=== PATIENT | male | born 1935 | race Hispanic/Latino ===

== ENCOUNTER 2022-12-14 08:49 | Inpatient (IN) | payer OTHER, MEDICAID ==
[2022-12-14] MEDS ORDERED: Fentanyl 100 MCG/2 ML VIAL ONE (08:59)
[2022-12-14] MEDS ORDERED: Albuterol 2.5 MG/0.5 ML NEB ONE (09:03)
[2022-12-14 09:14] LABS: #Basophils 0.1 thou/uL (0.0-0.2); #Eosinphils 0.3 thou/uL (0.0-0.7); #Lymphocytes 4.2 thou/uL (1.20-3.40); #Neutrophils 4.6 thou/uL (1.40-6.50); %Eosinophils 3.1 % (0.0-10.0); %Lymphocytes 40.7 % (21.0-51.0); %Monocytes 9.8 % (0.0-10.0); %Neutrophils 45.4 % (42.0-75.0); Hemoglobin 13.5 g/dL (14.0-18.0); Mean Corpuscular HGB CONC 32.3 g/dL (32.0-36.0); Mean Corpuscular Hemoglobin 32.1 pg (27.0-31.0); Mean Corpuscular Volume 99.3 fl (78.0-98.0); Mean Platelet Volume 9.1 fL (7.4-10.4); Platelet Count 186 10x3/uL (130-400); RBC Distribution Width 12.6 % (11.5-14.5); Red Blood Cell (RBC) Count 4.21 mill/uL (4.70-6.10); White Blood Cell (WBC) Count 10.2 10x3/uL (4.8-10.8)
[2022-12-14] MEDS ORDERED: Azithromycin 500 MG VIAL ONE (09:16)
[2022-12-14] MEDS ORDERED: cefTRIAXone\\ROCEPHIN 2 GM VIAL ONE (09:16)
[2022-12-14 09:26] LABS: Actual Bicarbonate (HCO3a) 21.4 mEq/L (22-28); Analyzer IN Cardio ER; Base Excess (BEa) -7.3 mEq/L (-2.0 to +3.0); CO2 Tension 56.6 mmHg (35.0-45.0); Calcium, Ionized (arterial) 1.22 mmol/L (1.12-1.30); Carboxyhemoglobin (COHb) 0.6 gm% (0.0-3.0); O2 Tension (PaO2), arterial 235.6 mmHg (> 60.0); Potassium - ABG Lab 3.84 mmol/L (3.70-5.30)
[2022-12-14 09:27] LABS: Puncture Site LRA
[2022-12-14 09:31] LABS: Bacteria/HPF Rare-Few HPF (None Seen); Bilirubin Negative (Negative); Blood, Urine 1+ (Negative); Clarity Clear (Clear); Glucose, Urine (Dipstick) 200 mg/dL (Negative); Ketone, Urine Negative (Negative); Leukocyte Negative Leu/uL (Negative); Nitrite Negative (Negative); Protein, Urine (Dipstick) 70 mg/dL (Neg-Trace); Specific Gravity, Urine 1.013 (1.002-1.036); Squamous Epithelial 0-3 HPF (0-3); Urobilinogen Normal mg/dL (Less than 2); WBC/HPF 0-3 HPF (0-3); pH, Urine 6.5 (5.0-9.0)
[2022-12-14 09:37] LABS: ALT (SGPT) 9 U/L (8-55); AST (SGOT) 16 U/L (5-34); Albumin 3.9 g/dL (3.4-4.8); Alkaline Phosphatase 77 U/L (40-110); Anion Gap 18 mmol/L (10-20); BUN (Urea Nitrogen) 15 mg/dL (8.4-25.7); Calc. Creatinine Clearance 0 mL/min (70-130); Calcium 8.5 mg/dL (7.8-10.44); Carbon Dioxide 18 mmol/L (23-31); Chloride 107 mmol/L (98-107); Estimated GFR 53; Globulin 2.3 g/dL (2.4-3.5); Glucose 281 mg/dL (83-110); Potassium 4.2 mmol/L (3.5-5.1); Protein, Total 6.2 g/dL (5.8-8.1); Sodium 139 mmol/L (136-145)
[2022-12-14] MEDS ORDERED: Fentanyl CADD 100 ML IV SCH (09:45)
[2022-12-14 09:53] LABS: SARS-CoV-2 NAA Rapid Test Not Detected (NotDetected)
[2022-12-14 10:29] LABS: Phosphorus 5.4 mg/dL (2.3-4.7)
[2022-12-14] MEDS ORDERED: Dextrose 5% in Water 1,000 ML IV PRN (10:53)
[2022-12-14] MEDS ORDERED: HumaLOG 300 UNITS/3 ML VIAL SC PRN (10:53)
[2022-12-14] MEDS ORDERED: Dextrose 50% Abboject 50 ML SYRINGE SLOW IVP PRN (10:53)
[2022-12-14] MEDS ORDERED: Ipratropium/Albuterol 3 ML NEB NEB PRN (10:54)
[2022-12-14] MEDS ORDERED: Labetalol HCl 100 MG/20 ML VIAL SLOW IVP PRN (10:59)
[2022-12-14] MEDS ORDERED: hydrALAZINE 20 MG/ML VIAL SLOW IVP PRN (10:59)
[2022-12-14] MEDS ORDERED: Propofol 1,000 MG/100 ML VIAL IV ONE (11:11)
[2022-12-14] MEDS: Propofol 1,000 MG/100 ML VIAL IV PRN (11:15)
[2022-12-14 12:03] LABS: Troponin I 0.033 ng/mL (< 0.028)
[2022-12-14] MEDS: Lactated Ringer's 1,000 ML IV SCH ×2 (12:07→16:42)
[2022-12-14] MEDS ORDERED: Ventilator Sedation Protocol 1 EACH FS SCH (12:33)
[2022-12-14] MEDS ORDERED: DISCONTINUE PREVIOUS NARCOTIC PAIN MEDICATIONS AND BENZODIAZEPINES FS SCH (12:45)
[2022-12-14] MEDS ORDERED: Morphine 4 MG/ML VIAL SLOW IVP PRN (12:45)
[2022-12-14] MEDS ORDERED: Fentanyl BOLUS 250 ML IVPB PRN (12:45)
[2022-12-14] MEDS ORDERED: Propofol BOLUS 1,000 MG/100 ML VIAL IV PRN (12:45)
[2022-12-14] MEDS: methylPREDNISolone Sod Succ 40 MG VIAL IVP SCH ×2 (13:09→17:41)
[2022-12-14] MEDS ORDERED: methylPREDNISolone Sod Succ 40 MG VIAL IVP SCH (14:00)
[2022-12-14] MEDS ORDERED: Lactated Ringer's 500 ML IV SCH (14:00)
[2022-12-14] MEDS ORDERED: Iopamidol-370 76% 500 ML 1 ML ONE (15:04)
[2022-12-14] MEDS ORDERED: Carvedilol 6.25 MG TAB PO SCH (17:00)
[2022-12-14 17:22] LABS: Hemoglobin A1c 5.4 % (4.0-6.0)
[2022-12-14 17:33] LABS: Lactic Acid 2.7 mmol/L (0.5-2.2)
[2022-12-14 17:37] LABS: Cardiac Risk 3.6 (Less than 4.5)
[2022-12-14] MEDS ORDERED: FLU VACC QS2022-23(65YR UP)/PF 240 MCG/0.7 ML SYRINGE IM ONE (18:00)
[2022-12-14] MEDS: Tamsulosin HCl 0.4 MG CAP PO SCH (21:49)
[2022-12-14] MEDS: Heparin 5,000 UNITS/ML VIAL SC SCH (21:49)
[2022-12-14 22:54] LABS: Lactic Acid 3.1 mmol/L (0.5-2.2)
[2022-12-15] MEDS: methylPREDNISolone Sod Succ 40 MG VIAL IVP SCH ×5 (00:17→23:30)
[2022-12-15] MEDS: Lactated Ringer's 1,000 ML IV SCH ×3 (03:11→21:52)
[2022-12-15 03:59] LABS: #Lymphocytes 0.6 thou/uL (1.20-3.40); #Monocytes 0.1 thou/uL (0.11-0.59); #Neutrophils 11.2 thou/uL (1.40-6.50); %Eosinophils 0.1 % (0.0-10.0); %Lymphocytes 5.1 % (21.0-51.0); %Neutrophils 93.8 % (42.0-75.0); Hemoglobin 12.4 g/dL (14.0-18.0); Mean Corpuscular HGB CONC 33.6 g/dL (32.0-36.0); Mean Corpuscular Hemoglobin 32.2 pg (27.0-31.0); Mean Corpuscular Volume 95.9 fl (78.0-98.0); Mean Platelet Volume 9.4 fL (7.4-10.4); Platelet Count 162 10x3/uL (130-400); RBC Distribution Width 12.6 % (11.5-14.5); Red Blood Cell (RBC) Count 3.86 mill/uL (4.70-6.10)
[2022-12-15 04:20] LABS: ALT (SGPT) 8 U/L (8-55); AST (SGOT) 15 U/L (5-34); Albumin 3.3 g/dL (3.4-4.8); Alkaline Phosphatase 68 U/L (40-110); Anion Gap 12 mmol/L (10-20); BUN (Urea Nitrogen) 20 mg/dL (8.4-25.7); Bilirubin, Total 0.8 mg/dL (0.2-1.2); Calc. Creatinine Clearance 50 mL/min (70-130); Calcium 8.4 mg/dL (7.8-10.44); Carbon Dioxide 21 mmol/L (23-31); Chloride 108 mmol/L (98-107); Estimated GFR 66; Globulin 2.3 g/dL (2.4-3.5); Glucose 154 mg/dL (83-110); Potassium 4.1 mmol/L (3.5-5.1); Protein, Total 5.6 g/dL (5.8-8.1); Sodium 137 mmol/L (136-145)
[2022-12-15] MEDS: Propofol 1,000 MG/100 ML VIAL IV PRN ×2 (04:46→17:31)
[2022-12-15 07:56] LABS: Actual Bicarbonate (HCO3a) 22.6 mEq/L (22-28); Base Excess (BEa) -0.3 mEq/L (-2.0 to +3.0); CO2 Tension 31.9 mmHg (35.0-45.0); Calcium, Ionized (arterial) 1.17 mmol/L (1.12-1.30); Carboxyhemoglobin (COHb) 0.2 gm% (0.0-3.0); Hemoglobin (Hb) 12.7 g/dL (14.0-18.0); O2 Tension (PaO2), arterial 100.1 mmHg (> 60.0); Potassium - ABG Lab 4.12 mmol/L (3.70-5.30); pH, Arterial 7.47 (7.35-7.45)
[2022-12-15 08:00] LABS: ALV-art Gradient 109.575 mmHg (0-20); Puncture Site RRA
[2022-12-15] MEDS: Heparin 5,000 UNITS/ML VIAL SC SCH ×2 (08:42→21:44)
[2022-12-15] MEDS: Lorazepam 2 MG/ML VIAL SLOW IVP PRN ×2 (08:42→21:45)
[2022-12-15] MEDS: Azithromycin 500 MG in Sodium Chloride 0.9% 250 ML 250 ML IVPB SCH (08:43)
[2022-12-15] MEDS: Pantoprazole 40 MG VIAL IVP SCH (08:43)
[2022-12-15] MEDS ORDERED: Lactated Ringer's 1,000 ML IV SCH (08:45)
[2022-12-15] MEDS ORDERED: Lisinopril 10 MG TAB PO SCH (09:00)
[2022-12-15] MEDS ORDERED: Ipratropium/Albuterol 3 ML NEB NEB SCH (10:30)
[2022-12-15] MEDS: Ipratropium/Albuterol 3 ML NEB NEB SCH ×5 (11:08→21:42)
[2022-12-15] MEDS: cefTRIAXone\\ROCEPHIN 1 GM in Sodium Chloride 0.9% 100 ML IVPB SCH (11:10)
[2022-12-15] MEDS: Tamsulosin HCl 0.4 MG CAP PO SCH (21:45)
[2022-12-16] MEDS: Ipratropium/Albuterol 3 ML NEB NEB SCH ×8 (00:28→22:06)
[2022-12-16] MEDS: Propofol 1,000 MG/100 ML VIAL IV PRN ×3 (02:29→23:45)
[2022-12-16 03:59] LABS: #Lymphocytes 0.5 thou/uL (1.20-3.40); #Monocytes 0.4 thou/uL (0.11-0.59); %Eosinophils 0.1 % (0.0-10.0); %Lymphocytes 3.1 % (21.0-51.0); %Monocytes 2.6 % (0.0-10.0); %Neutrophils 94.2 % (42.0-75.0); Hemoglobin 11.6 g/dL (14.0-18.0); Mean Corpuscular Hemoglobin 32.2 pg (27.0-31.0); Mean Corpuscular Volume 97.5 fl (78.0-98.0); Mean Platelet Volume 9.5 fL (7.4-10.4); Platelet Count 165 10x3/uL (130-400); RBC Distribution Width 12.8 % (11.5-14.5); Red Blood Cell (RBC) Count 3.62 mill/uL (4.70-6.10); White Blood Cell (WBC) Count 14.8 10x3/uL (4.8-10.8)
[2022-12-16 04:36] LABS: ALT (SGPT) 9 U/L (8-55); AST (SGOT) 11 U/L (5-34); Alkaline Phosphatase 58 U/L (40-110); Anion Gap 14 mmol/L (10-20); BUN (Urea Nitrogen) 28 mg/dL (8.4-25.7); Bilirubin, Total 0.3 mg/dL (0.2-1.2); Calc. Creatinine Clearance 61 mL/min (70-130); Calcium 8.1 mg/dL (7.8-10.44); Carbon Dioxide 20 mmol/L (23-31); Chloride 107 mmol/L (98-107); Estimated GFR 84; Globulin 2.1 g/dL (2.4-3.5); Glucose 174 mg/dL (83-110); Potassium 3.8 mmol/L (3.5-5.1); Protein, Total 5.1 g/dL (5.8-8.1); Sodium 137 mmol/L (136-145)
[2022-12-16] MEDS: methylPREDNISolone Sod Succ 40 MG VIAL IVP SCH ×4 (05:35→23:45)
[2022-12-16] MEDS: HumaLOG 300 UNITS/3 ML VIAL SC PRN ×3 (05:35→17:59)
[2022-12-16] MEDS: Azithromycin 500 MG in Sodium Chloride 0.9% 250 ML 250 ML IVPB SCH (08:21)
[2022-12-16] MEDS: Pantoprazole 40 MG VIAL IVP SCH (08:24)
[2022-12-16] MEDS: Heparin 5,000 UNITS/ML VIAL SC SCH ×2 (08:24→20:15)
[2022-12-16] MEDS: cefTRIAXone\\ROCEPHIN 1 GM in Sodium Chloride 0.9% 100 ML IVPB SCH (10:52)
[2022-12-16] MEDS: Lactated Ringer's 1,000 ML IV SCH ×2 (13:01→22:13)
[2022-12-16] MEDS: Tamsulosin HCl 0.4 MG CAP PO SCH (20:16)
[2022-12-17] MEDS: Ipratropium/Albuterol 3 ML NEB NEB SCH ×8 (00:35→22:41)
[2022-12-17] MEDS: methylPREDNISolone Sod Succ 40 MG VIAL IVP SCH ×2 (06:19→12:52)
[2022-12-17] MEDS: HumaLOG 300 UNITS/3 ML VIAL SC PRN (06:20)
[2022-12-17 06:38] LABS: #Lymphocytes 0.4 thou/uL (1.20-3.40); #Monocytes 0.5 thou/uL (0.11-0.59); #Neutrophils 15.3 thou/uL (1.40-6.50); %Eosinophils 0.1 % (0.0-10.0); %Lymphocytes 2.5 % (21.0-51.0); %Monocytes 2.8 % (0.0-10.0); %Neutrophils 94.6 % (42.0-75.0); Hemoglobin 13.9 g/dL (14.0-18.0); Mean Corpuscular HGB CONC 33.5 g/dL (32.0-36.0); Mean Corpuscular Hemoglobin 32.3 pg (27.0-31.0); Mean Corpuscular Volume 96.6 fl (78.0-98.0); Mean Platelet Volume 10.1 fL (7.4-10.4); Platelet Count 158 10x3/uL (130-400); RBC Distribution Width 12.8 % (11.5-14.5); Red Blood Cell (RBC) Count 4.29 mill/uL (4.70-6.10); White Blood Cell (WBC) Count 16.2 10x3/uL (4.8-10.8)
[2022-12-17 07:23] LABS: ALT (SGPT) 9 U/L (8-55); AST (SGOT) 13 U/L (5-34); Albumin 3.3 g/dL (3.4-4.8); Alkaline Phosphatase 66 U/L (40-110); Anion Gap 12 mmol/L (10-20); BUN (Urea Nitrogen) 25 mg/dL (8.4-25.7); Bilirubin, Total 0.3 mg/dL (0.2-1.2); Calc. Creatinine Clearance 72 mL/min (70-130); Calcium 8.3 mg/dL (7.8-10.44); Carbon Dioxide 22 mmol/L (23-31); Chloride 108 mmol/L (98-107); Estimated GFR 88; Globulin 2.5 g/dL (2.4-3.5); Glucose 176 mg/dL (83-110); Potassium 4.1 mmol/L (3.5-5.1); Protein, Total 5.8 g/dL (5.8-8.1); Sodium 138 mmol/L (136-145)
[2022-12-17] MEDS: cefTRIAXone\\ROCEPHIN 1 GM in Sodium Chloride 0.9% 100 ML IVPB SCH (10:19)
[2022-12-17] MEDS: Azithromycin 500 MG in Sodium Chloride 0.9% 250 ML 250 ML IVPB SCH (10:19)
[2022-12-17] MEDS: Pantoprazole 40 MG VIAL IVP SCH (10:19)
[2022-12-17] MEDS: Lactated Ringer's 1,000 ML IV SCH (10:20)
[2022-12-17] MEDS: Heparin 5,000 UNITS/ML VIAL SC SCH ×2 (10:21→21:08)
[2022-12-17] MEDS: Tamsulosin HCl 0.4 MG CAP PO SCH (21:08)
[2022-12-18] MEDS: Ipratropium/Albuterol 3 ML NEB NEB SCH ×8 (00:58→22:26)
[2022-12-18 05:35] LABS: #Lymphocytes 0.9 thou/uL (1.20-3.40); #Monocytes 1.2 thou/uL (0.11-0.59); #Neutrophils 13.6 thou/uL (1.40-6.50); %Basophils 0.1 % (0.0-1.0); %Eosinophils 0.3 % (0.0-10.0); %Lymphocytes 5.9 % (21.0-51.0); %Monocytes 7.7 % (0.0-10.0); %Neutrophils 86.1 % (42.0-75.0); Hemoglobin 13.1 g/dL (14.0-18.0); Mean Corpuscular HGB CONC 33.2 g/dL (32.0-36.0); Mean Corpuscular Hemoglobin 31.9 pg (27.0-31.0); Mean Corpuscular Volume 96.1 fl (78.0-98.0); Mean Platelet Volume 9.4 fL (7.4-10.4); Platelet Count 167 10x3/uL (130-400); RBC Distribution Width 12.9 % (11.5-14.5); Red Blood Cell (RBC) Count 4.12 mill/uL (4.70-6.10); White Blood Cell (WBC) Count 15.8 10x3/uL (4.8-10.8)
[2022-12-18 05:57] LABS: Anion Gap 11 mmol/L (10-20); BUN (Urea Nitrogen) 22 mg/dL (8.4-25.7); CRP (Inflammatory) Less than 0.50 mg/dL (= or < 0.5); Calc. Creatinine Clearance 66 mL/min (70-130); Calcium 8.2 mg/dL (7.8-10.44); Carbon Dioxide 29 mmol/L (23-31); Chloride 105 mmol/L (98-107); Estimated GFR 86; Glucose 125 mg/dL (83-110); Potassium 3.9 mmol/L (3.5-5.1); Sodium 141 mmol/L (136-145)
[2022-12-18] MEDS: Heparin 5,000 UNITS/ML VIAL SC SCH ×2 (08:41→22:50)
[2022-12-18] MEDS: predniSONE 20 MG TAB PO SCH (08:42)
[2022-12-18] MEDS: Pantoprazole 40 MG VIAL IVP SCH (08:42)
[2022-12-18] MEDS: cefTRIAXone\\ROCEPHIN 1 GM in Sodium Chloride 0.9% 100 ML IVPB SCH (09:04)
[2022-12-18] MEDS: Azithromycin 500 MG in Sodium Chloride 0.9% 250 ML 250 ML IVPB SCH (10:15)
[2022-12-18] MEDS: Cefuroxime 250 MG TAB PO SCH (22:50)
[2022-12-18] MEDS: Tamsulosin HCl 0.4 MG CAP PO SCH (22:50)
[2022-12-19] MEDS: Ipratropium/Albuterol 3 ML NEB NEB SCH ×8 (00:36→22:00)
[2022-12-19] MEDS: Heparin 5,000 UNITS/ML VIAL SC SCH ×2 (09:01→20:36)
[2022-12-19] MEDS: Pantoprazole 40 MG VIAL IVP SCH (09:01)
[2022-12-19] MEDS: predniSONE 20 MG TAB PO SCH (09:01)
[2022-12-19 12:17] VITALS: BMI 22.9
[2022-12-19] MEDS: Cefuroxime 250 MG TAB PO SCH ×2 (12:33→20:35)
[2022-12-19] MEDS: Tamsulosin HCl 0.4 MG CAP PO SCH (20:35)
[2022-12-20] MEDS: Ipratropium/Albuterol 3 ML NEB NEB SCH ×2 (00:25→07:36)
[2022-12-20 08:28] VITALS: BP 149/76; TEMP 97.6
[2022-12-20] MEDS: predniSONE 20 MG TAB PO SCH (08:30)
[2022-12-20] MEDS: Pantoprazole 40 MG VIAL IVP SCH (08:30)
[2022-12-20] MEDS: Heparin 5,000 UNITS/ML VIAL SC SCH (08:33)
[2022-12-20] MEDS: Cefuroxime 250 MG TAB PO SCH (08:39)
[2022-12-20] MEDS ORDERED: hydrALAZINE 20 MG/ML VIAL SLOW IVP PRN (09:46)
== END 2022-12-20 18:10 | disposition home or self-care (01) | DRG 208 ==
LOC: EDBD → ERS 08:49 → CCU 10:22 → MSONC 12-17 16:05
PROVIDERS: ADMIT Hospitalist; ATTEND Hospitalist
PROC: 5A1945Z Respiratory Ventilation, 24-96 Consecutive Hours (ICD-10-PCS; principal; 2022-12-14)
PROC: 0BH17EZ Insertion of Endotracheal Airway into Trachea, Via Natural or Artificial Opening (ICD-10-PCS; 2022-12-14)
DX: J96.01 Acute respiratory failure with hypoxia (principal); G93.41 Metabolic encephalopathy; J45.901 Unspecified asthma with (acute) exacerbation; E87.4 Mixed disorder of acid-base balance; N17.9 Acute kidney failure, unspecified; J45.902 Unspecified asthma with status asthmaticus; J44.1 Chronic obstructive pulmonary disease with (acute) exacerbation; Z20.822 Contact with and (suspected) exposure to COVID-19; J96.02 Acute respiratory failure with hypercapnia; I10 Essential (primary) hypertension; N40.0 Benign prostatic hyperplasia without lower urinary tract symptoms; K21.9 Gastro-esophageal reflux disease without esophagitis; D63.8 Anemia in other chronic diseases classified elsewhere; R73.9 Hyperglycemia, unspecified; Z78.1 Physical restraint status; Z87.01 Personal history of pneumonia (recurrent); Z79.899 Other long term (current) drug therapy
CPT/HCPCS: 31500; 36415; 36416; 36600; 51702; 70450; 71045; 71275; 76770; 80048; 80053; 80061; 81003; 81015; 82550; 82805; 83036; 83605; 83735; 83880; 84100; 84145; 84484; 85025; 86140; 87040; 87086; 93005; 93306; 94002; 94003; 94640; 94644; 94760; 96365; 96367; 96375; C9113; J0456; J0696; J1644; J1815; J2060; J2704; J2920; J3010; J3490; J7050; J7120; J7512; J7611; J7620; Q9967; U0002

== ENCOUNTER 2022-12-27 00:36 | Emergency (ER) | payer OTHER, MEDICAID | END 2022-12-27 05:12 | disposition home or self-care (01) | LOC: ERS 00:36 | DX: J44.1 Chronic obstructive pulmonary disease with (acute) exacerbation (principal) | CPT/HCPCS: 71045 ==

== ENCOUNTER 2022-12-27 12:22 | Inpatient (IN) | payer OTHER, MEDICAID ==
[2022-12-27 13:45] LABS: #Eosinphils 0.2 thou/uL (0.0-0.7); #Monocytes 0.9 thou/uL (0.11-0.59); #Neutrophils 16.4 thou/uL (1.40-6.50); %Basophils 0.3 % (0.0-1.0); %Lymphocytes 5.4 % (21.0-51.0); %Monocytes 5.1 % (0.0-10.0); %Neutrophils 88.2 % (42.0-75.0); Hemoglobin 13.7 g/dL (14.0-18.0); Mean Corpuscular HGB CONC 33.5 g/dL (32.0-36.0); Mean Corpuscular Hemoglobin 32.3 pg (27.0-31.0); Mean Corpuscular Volume 96.6 fl (78.0-98.0); Mean Platelet Volume 8.3 fL (7.4-10.4); Platelet Count 199 10x3/uL (130-400); RBC Distribution Width 12.6 % (11.5-14.5); Red Blood Cell (RBC) Count 4.23 mill/uL (4.70-6.10); White Blood Cell (WBC) Count 18.6 10x3/uL (4.8-10.8)
[2022-12-27 14:06] LABS: ALT (SGPT) 15 U/L (8-55); AST (SGOT) 14 U/L (5-34); Albumin 3.9 g/dL (3.4-4.8); Alkaline Phosphatase 78 U/L (40-110); Anion Gap 11 mmol/L (10-20); BUN (Urea Nitrogen) 13 mg/dL (8.4-25.7); Bilirubin, Total 1.6 mg/dL (0.2-1.2); Calc. Creatinine Clearance 0 mL/min (70-130); Calcium 8.5 mg/dL (7.8-10.44); Carbon Dioxide 23 mmol/L (23-31); Chloride 109 mmol/L (98-107); Estimated GFR 85; Globulin 2.6 g/dL (2.4-3.5); Glucose 108 mg/dL (83-110); Potassium 3.9 mmol/L (3.5-5.1); Protein, Total 6.5 g/dL (5.8-8.1); Sodium 139 mmol/L (136-145)
[2022-12-27] MEDS ORDERED: Ipratropium/Albuterol 3 ML NEB ONE (14:39)
[2022-12-27] MEDS ORDERED: Magnesium 2 GM/50 ML BAG (IN WATER) ONE (15:29)
[2022-12-27] MEDS ORDERED: methylPREDNISolone Sod Succ/PF 125 MG/2 ML VIAL ONE (15:29)
[2022-12-27] MEDS ORDERED: Azithromycin 500 MG VIAL ONE (16:16)
[2022-12-27] MEDS ORDERED: cefTRIAXone\\ROCEPHIN 1 GM VIAL ONE (16:16)
[2022-12-27 16:35] LABS: SARS-CoV-2 NAA Rapid Test Not Detected (NotDetected)
[2022-12-27] MEDS ORDERED: HYDROcodone/Acetaminophen 5/325 mg Tablet PO PRN (18:22)
[2022-12-27] MEDS ORDERED: Ondansetron PF 4 MG/2 ML Vial IVP PRN (18:22)
[2022-12-27] MEDS ORDERED: Ondansetron ODT 4 MG TAB PO PRN (18:22)
[2022-12-27] MEDS ORDERED: Acetaminophen 325 MG TAB PO PRN (18:22)
[2022-12-27] MEDS ORDERED: Ipratropium/Albuterol 3 ML NEB NEB PRN (18:26)
[2022-12-27] MEDS ORDERED: Sodium Chloride 0.9% 1,000 ML IV SCH (18:30)
[2022-12-27] MEDS ORDERED: Ipratropium/Albuterol 3 ML NEB NEB SCH (18:45)
[2022-12-27] MEDS: Ipratropium/Albuterol 3 ML NEB NEB SCH (19:00)
[2022-12-27 19:26] LABS: Actual Bicarbonate (HCO3v) 26 mEq/L (22-28); Analyzer IN Cardio ER; Base Excess -1.9 mEq/L (-2.0 to +3.0); Calcium, Ionized (venous) 1.14 mmol/L (1.16-1.32); Chloride (VBG) 105 mmol/L (98-106); Hemoglobin (Hb) 14.5 g/dL (12.6-17.4); Potassium (VBG) 3.75 mmol/L (3.70-5.30); Sodium 140.5 mmol/L (133-146); pH (venous) 7.26 (7.32-7.43)
[2022-12-27] MEDS: Sodium Chloride 0.9% 1,000 ML IV SCH (19:55)
[2022-12-27] MEDS ORDERED: Tamsulosin HCl 0.4 MG CAP PO SCH (21:00)
[2022-12-27] MEDS: Famotidine 20 MG TAB PO SCH (21:11)
[2022-12-28] MEDS: Sodium Chloride 0.9% 1,000 ML IV SCH (03:55)
[2022-12-28] MEDS ORDERED: methylPREDNISolone Sod Succ 40 MG VIAL IVP SCH ×2 (06:00→14:00)
[2022-12-28] MEDS: Ipratropium/Albuterol 3 ML NEB NEB SCH ×3 (06:46→15:13)
[2022-12-28 07:39] LABS: #Lymphocytes 0.5 thou/uL (1.20-3.40); #Monocytes 0.2 thou/uL (0.11-0.59); %Basophils 0.1 % (0.0-1.0); %Eosinophils 0.3 % (0.0-10.0); %Monocytes 1.6 % (0.0-10.0); Hemoglobin 13.2 g/dL (14.0-18.0); Mean Corpuscular HGB CONC 33.3 g/dL (32.0-36.0); Mean Corpuscular Hemoglobin 32.2 pg (27.0-31.0); Mean Corpuscular Volume 96.8 fl (78.0-98.0); Mean Platelet Volume 8.4 fL (7.4-10.4); Platelet Count 196 10x3/uL (130-400); RBC Distribution Width 12.8 % (11.5-14.5); Red Blood Cell (RBC) Count 4.09 mill/uL (4.70-6.10); White Blood Cell (WBC) Count 12.8 10x3/uL (4.8-10.8)
[2022-12-28 07:59] LABS: Anion Gap 12 mmol/L (10-20); BUN (Urea Nitrogen) 17 mg/dL (8.4-25.7); Calc. Creatinine Clearance 61 mL/min (70-130); Calcium 8.3 mg/dL (7.8-10.44); Carbon Dioxide 23 mmol/L (23-31); Chloride 108 mmol/L (98-107); Estimated GFR 85; Glucose 145 mg/dL (83-110); Potassium 3.9 mmol/L (3.5-5.1); Sodium 139 mmol/L (136-145)
[2022-12-28] MEDS ORDERED: Lisinopril 10 MG TAB PO SCH (09:00)
[2022-12-28] MEDS: Famotidine 20 MG TAB PO SCH (09:59)
[2022-12-28 11:49] VITALS: BP 121/64
[2022-12-28] MEDS ORDERED: cefTRIAXone\\ROCEPHIN 1 GM in Sodium Chloride 0.9% 100 ML IVPB SCH (16:00)
[2022-12-28] MEDS ORDERED: Azithromycin 500 MG in Sodium Chloride 0.9% 250 ML 250 ML IVPB SCH (16:00)
[2022-12-28] MEDS ORDERED: Azithromycin 250 MG TAB PO SCH (16:00)
[2022-12-28 17:01] VITALS: TEMP 98
[2022-12-28] MEDS ORDERED: Mometasone 100 MCG/Formoterol 5 MCG 120 PUFF INHALER INH SCH (18:30)
[2022-12-28] MEDS ORDERED: Carvedilol 6.25 MG TAB PO SCH (21:00)
[2022-12-31] MEDS ORDERED: FLU VACC QS2022-23(65YR UP)/PF 240 MCG/0.7 ML SYRINGE IM ONE (03:00)
== END 2022-12-28 16:54 | disposition home or self-care (01) | DRG 189 ==
LOC: ERS 12:22 → ERHOLD 17:04 → T4-A 18:22
PROVIDERS: ADMIT Family Medicine; ATTEND Internal Medicine
DX: J96.01 Acute respiratory failure with hypoxia (principal); J44.1 Chronic obstructive pulmonary disease with (acute) exacerbation; J45.901 Unspecified asthma with (acute) exacerbation; I10 Essential (primary) hypertension; Z20.822 Contact with and (suspected) exposure to COVID-19; N40.0 Benign prostatic hyperplasia without lower urinary tract symptoms; K21.9 Gastro-esophageal reflux disease without esophagitis; Z79.51 Long term (current) use of inhaled steroids; Z87.891 Personal history of nicotine dependence; Z79.899 Other long term (current) drug therapy
CPT/HCPCS: 36415; 71045; 80048; 80053; 82805; 83605; 83880; 84484; 85025; 87040; 93005; 94640; 96365; 96367; 96375; J0456; J0696; J1650; J2920; J2930; J3475; J7050; J7620

== ENCOUNTER 2022-12-29 00:28 | Emergency (ER) | payer OTHER, MEDICAID ==
[2022-12-29] MEDS ORDERED: Albuterol 2.5 MG/0.5 ML NEB ONE (01:09)
[2022-12-29] MEDS ORDERED: predniSONE 20 MG TAB ONE (01:36)
== END 2022-12-29 02:37 | disposition home or self-care (01) ==
LOC: ERS 00:28
DX: J44.9 Chronic obstructive pulmonary disease, unspecified (principal); Z87.891 Personal history of nicotine dependence; Z79.899 Other long term (current) drug therapy
CPT/HCPCS: 71045; 93005; 94644; J7512; J7611

== ENCOUNTER 2023-01-13 15:57 | Emergency (ER) | payer OTHER, MEDICAID, MEDICARE | END 2023-01-13 19:28 | LOC: ERS 15:57 | DX: Z53.21 Procedure and treatment not carried out due to patient leaving prior to being seen by health care provider (principal) ==

== ENCOUNTER 2023-02-03 00:31 | Inpatient (IN) | payer OTHER, MEDICAID ==
[2023-02-03 01:36] LABS: #Eosinphils 0.2 thou/uL (0.0-0.7); #Lymphocytes 1.4 thou/uL (1.20-3.40); #Monocytes 0.5 thou/uL (0.11-0.59); #Neutrophils 7.6 thou/uL (1.40-6.50); %Basophils 0.3 % (0.0-1.0); %Eosinophils 1.9 % (0.0-10.0); %Lymphocytes 14.5 % (21.0-51.0); %Monocytes 5.4 % (0.0-10.0); %Neutrophils 77.9 % (42.0-75.0); Hemoglobin 13.7 g/dL (14.0-18.0); Mean Corpuscular HGB CONC 33.2 g/dL (32.0-36.0); Mean Corpuscular Hemoglobin 32.3 pg (27.0-31.0); Mean Corpuscular Volume 97.4 fl (78.0-98.0); Mean Platelet Volume 8.3 fL (7.4-10.4); Platelet Count 203 10x3/uL (130-400); Red Blood Cell (RBC) Count 4.24 mill/uL (4.70-6.10); White Blood Cell (WBC) Count 9.7 10x3/uL (4.8-10.8)
[2023-02-03 01:56] LABS: ALT (SGPT) 8 U/L (8-55); AST (SGOT) 15 U/L (5-34); Albumin 3.8 g/dL (3.4-4.8); Alkaline Phosphatase 81 U/L (40-110); Anion Gap 12 mmol/L (10-20); BUN (Urea Nitrogen) 11 mg/dL (8.4-25.7); Bilirubin, Total 0.9 mg/dL (0.2-1.2); Calc. Creatinine Clearance 0 mL/min (70-130); Calcium 8.7 mg/dL (7.8-10.44); Carbon Dioxide 27 mmol/L (23-31); Chloride 108 mmol/L (98-107); Estimated GFR 84; Globulin 2.7 g/dL (2.4-3.5); Glucose 109 mg/dL (83-110); Potassium 4.1 mmol/L (3.5-5.1); Protein, Total 6.5 g/dL (5.8-8.1); Sodium 143 mmol/L (136-145)
[2023-02-03] MEDS ORDERED: Albuterol 2.5 MG/0.5 ML NEB ONE (02:28)
[2023-02-03] MEDS ORDERED: Azithromycin 250 MG TAB ONE (02:47)
[2023-02-03 03:13] LABS: Actual Bicarbonate (HCO3v) 24 mEq/L (22-28); Base Excess -1.3 mEq/L (-2.0 to +3.0); Calcium, Ionized (venous) 1.13 mmol/L (1.16-1.32); Chloride (VBG) 105 mmol/L (98-106); Hemoglobin (Hb) 14.2 g/dL (12.6-17.4); Potassium (VBG) 4.16 mmol/L (3.70-5.30); Sodium 137.7 mmol/L (133-146); pH (venous) 7.36 (7.32-7.43)
[2023-02-03 03:17] VITALS: BMI 24.3
[2023-02-03] MEDS ORDERED: Ondansetron ODT 4 MG TAB PO PRN (03:22)
[2023-02-03] MEDS ORDERED: Ondansetron PF 4 MG/2 ML Vial IVP PRN (03:22)
[2023-02-03] MEDS ORDERED: Acetaminophen 325 MG TAB PO PRN (03:22)
[2023-02-03] MEDS ORDERED: cefTRIAXone (ROCEPHIN) 1 GM VIAL ONE (03:51)
[2023-02-03] MEDS: cefTRIAXone\\ROCEPHIN 1 GM in Sodium Chloride 0.9% 100 ML IVPB SCH (03:57)
[2023-02-03 04:33] LABS: SARS-CoV-2 NAA Rapid Test Not Detected (NotDetected)
[2023-02-03 06:14] LABS: Troponin I 0.084 ng/mL (< 0.028)
[2023-02-03] MEDS ORDERED: Ipratropium/Albuterol 3 ML NEB NEB SCH (07:00)
[2023-02-03 08:47] LABS: Troponin I 0.122 ng/mL (< 0.028)
[2023-02-03] MEDS: predniSONE 20 MG TAB PO SCH (08:54)
[2023-02-03] MEDS: Ipratropium/Albuterol 3 ML NEB NEB SCH ×3 (09:13→18:40)
[2023-02-04] MEDS: Ipratropium/Albuterol 3 ML NEB NEB SCH ×3 (00:40→14:35)
[2023-02-04] MEDS: cefTRIAXone\\ROCEPHIN 1 GM in Sodium Chloride 0.9% 100 ML IVPB SCH (02:50)
[2023-02-04] MEDS ORDERED: Azithromycin 500 MG in Sodium Chloride 0.9% 250 ML 250 ML IVPB SCH (03:00)
[2023-02-04 05:54] LABS: #Lymphocytes 1.5 thou/uL (1.20-3.40); #Monocytes 1.3 thou/uL (0.11-0.59); #Neutrophils 16.2 thou/uL (1.40-6.50); %Basophils 0.1 % (0.0-1.0); %Eosinophils 0.2 % (0.0-10.0); %Lymphocytes 7.8 % (21.0-51.0); %Monocytes 6.8 % (0.0-10.0); %Neutrophils 85.2 % (42.0-75.0); Hemoglobin 13.2 g/dL (14.0-18.0); Mean Corpuscular HGB CONC 32.7 g/dL (32.0-36.0); Mean Corpuscular Hemoglobin 31.9 pg (27.0-31.0); Mean Corpuscular Volume 97.5 fl (78.0-98.0); Mean Platelet Volume 8.7 fL (7.4-10.4); Platelet Count 229 10x3/uL (130-400); RBC Distribution Width 13.2 % (11.5-14.5); Red Blood Cell (RBC) Count 4.14 mill/uL (4.70-6.10); White Blood Cell (WBC) Count 19.1 10x3/uL (4.8-10.8)
[2023-02-04 06:11] LABS: Anion Gap 13 mmol/L (10-20); BUN (Urea Nitrogen) 26 mg/dL (8.4-25.7); Calc. Creatinine Clearance 54 mL/min (70-130); Calcium 8.6 mg/dL (7.8-10.44); Carbon Dioxide 24 mmol/L (23-31); Chloride 104 mmol/L (98-107); Estimated GFR 66; Glucose 126 mg/dL (83-110); Potassium 3.9 mmol/L (3.5-5.1); Sodium 137 mmol/L (136-145)
[2023-02-04] MEDS: predniSONE 20 MG TAB PO SCH (09:52)
[2023-02-04 12:40] LABS: Troponin I 0.062 ng/mL (< 0.028)
[2023-02-04] MEDS ORDERED: Albuterol 200 PUFF (6.7GM INHALER) INH PRN (15:06)
[2023-02-04] MEDS ORDERED: Albuterol 200 PUFF (6.7GM INHALER) INH SCH (15:45)
[2023-02-04] MEDS: Albuterol 200 PUFF (6.7GM INHALER) INH SCH (19:07)
[2023-02-05] MEDS: Albuterol 200 PUFF (6.7GM INHALER) INH SCH ×2 (01:02→07:53)
[2023-02-05 07:22] LABS: #Eosinphils 0.1 thou/uL (0.0-0.7); #Lymphocytes 2.2 thou/uL (1.20-3.40); #Monocytes 0.9 thou/uL (0.11-0.59); #Neutrophils 10.8 thou/uL (1.40-6.50); %Basophils 0.1 % (0.0-1.0); %Eosinophils 0.5 % (0.0-10.0); %Lymphocytes 15.7 % (21.0-51.0); %Monocytes 6.5 % (0.0-10.0); %Neutrophils 77.1 % (42.0-75.0); Hemoglobin 12.8 g/dL (14.0-18.0); Mean Corpuscular HGB CONC 33.7 g/dL (32.0-36.0); Mean Corpuscular Hemoglobin 32.7 pg (27.0-31.0); Mean Corpuscular Volume 97.1 fl (78.0-98.0); Mean Platelet Volume 9.1 fL (7.4-10.4); Platelet Count 212 10x3/uL (130-400); RBC Distribution Width 13.1 % (11.5-14.5); Red Blood Cell (RBC) Count 3.92 mill/uL (4.70-6.10)
[2023-02-05 07:31] LABS: Anion Gap 11 mmol/L (10-20); BUN (Urea Nitrogen) 25 mg/dL (8.4-25.7); Calc. Creatinine Clearance 68 mL/min (70-130); Calcium 8.2 mg/dL (7.8-10.44); Carbon Dioxide 26 mmol/L (23-31); Chloride 104 mmol/L (98-107); Estimated GFR 85; Glucose 94 mg/dL (83-110); Potassium 3.5 mmol/L (3.5-5.1); Sodium 137 mmol/L (136-145)
[2023-02-05] MEDS: predniSONE 20 MG TAB PO SCH (08:03)
[2023-02-05] MEDS ORDERED: Azithromycin 250 MG TAB PO SCH (09:00)
[2023-02-05] MEDS ORDERED: Lisinopril 10 MG TAB PO SCH (09:00)
[2023-02-05] MEDS ORDERED: Amoxicillin/Potassium Clav 875 MG TAB PO SCH (09:00)
[2023-02-05 11:31] VITALS: BP 154/86; TEMP 97.4
== END 2023-02-05 11:44 | disposition home or self-care (01) | DRG 177 ==
LOC: ERS 00:31 → ERHOLD 02:56 → 2SW 07:59 → T4-B 02-04 15:54 → OBSVTOIN 02-05 08:36
PROVIDERS: ADMIT Student in an Organized Health Care Education/Training Program; ATTEND Internal Medicine
DX: J15.6 Pneumonia due to other Gram-negative bacteria (principal); J96.01 Acute respiratory failure with hypoxia; J44.1 Chronic obstructive pulmonary disease with (acute) exacerbation; J44.0 Chronic obstructive pulmonary disease with (acute) lower respiratory infection; N40.0 Benign prostatic hyperplasia without lower urinary tract symptoms; R77.8 Other specified abnormalities of plasma proteins; N18.2 Chronic kidney disease, stage 2 (mild); D63.1 Anemia in chronic kidney disease; I12.9 Hypertensive chronic kidney disease with stage 1 through stage 4 chronic kidney disease, or unspecified chronic kidney disease; K21.9 Gastro-esophageal reflux disease without esophagitis; Z79.899 Other long term (current) drug therapy; Z79.51 Long term (current) use of inhaled steroids; Z98.890 Other specified postprocedural states; Z87.891 Personal history of nicotine dependence; Z80.9 Family history of malignant neoplasm, unspecified; Z20.822 Contact with and (suspected) exposure to COVID-19
CPT/HCPCS: 36415; 71045; 80048; 80053; 82805; 83880; 84145; 84484; 85025; 93005; 94640; 96376; G0378; J0456; J0696; J3490; J7050; J7512; J7611; J7620; U0002